=== PATIENT | male | born 1965 | race Caucasian/White ===

== ENCOUNTER 2023-06-11 18:58 | Inpatient (IN) | payer MEDICAID ==
[~2023-06-11] VITALS: Ht 172.7 cm; Wt 117.0 kg
[2023-06-11] MEDS ORDERED: PIPERACILLIN SODIUM/TAZOBACTAM 3.375 G in IV DEXTROSE 5% 50 ML IV ONE (19:30)
[2023-06-11] MEDS ORDERED: VANCOMYCIN IV 1,000 MG in IV DEXTROSE 5% 250 ML IV ONE (19:30)
[2023-06-11] MEDS ORDERED: HYDROMORPHONE 1 MG/1 ML DISP.SYRIN IV ONE ×2 (19:30→21:15)
[2023-06-11] MEDS ORDERED: ONDANSETRON 4 MG/2 ML VIAL IV ONE (19:30)
[2023-06-11 20:03] LABS: BASOPHILS % (AUTO) 0.2 % (0.0-2.0); HEMOGLOBIN 13.5 g/dL (12.5-16.3); LYMPHOCYTES # (AUTO) 0.5 K/uL (0.8-4.8); LYMPHOCYTES % (AUTO) 4.7 % (20.5-51.5); MEAN CORPUSCULAR HEMOGLOBIN 27.4 uug (23.8-33.4); MEAN CORPUSCULAR HGB CONC 32 g/dL (32.5-36.3); MEAN CORPUSCULAR VOLUME 85.1 fL (73.0-96.2); MONOCYTES # (AUTO) 0.5 K/uL (0.1-1.30); MONOCYTES % (AUTO) 4.6 % (0.0-11.0); NEUTROPHILS # (AUTO) 9.2 K/uL (1.8-8.9); NEUTROPHILS % (AUTO) 90.5 % (38.5-71.5); PLATELET COUNT (AUTO) 315 K/uL (152-348); RED BLOOD CELL COUNT(AUTO) 4.93 MIL/uL (4.06-5.63); RED CELL DISTRIBUTION WIDTH 15.5 % (12.1-16.2); WHITE BLOOD COUNT (AUTO) 10.1 K/uL (3.6-10.2)
[2023-06-11] MEDS ORDERED: VANCOMYCIN IV 200 ML ONE (20:09)
[2023-06-11] MEDS ORDERED: ONDANSETRON 4 MG/2 ML VIAL ONE (20:09)
[2023-06-11] MEDS ORDERED: PIPERACILLIN/TAZOBACTAM/D5W 50 ML IV ONE (20:09)
[2023-06-11] MEDS ORDERED: HYDROMORPHONE 1 MG/1 ML DISP.SYRIN ONE ×2 (20:10→22:06)
[2023-06-11 20:12] LABS: DIFFERENTIAL COMMENT 1
[2023-06-11 20:13] LABS: CALCIUM 9.6 mg/dL (8.5-10.1); CARBON DIOXIDE 24 mmol/L (21-32); CHLORIDE 101 mmol/L (98-107); GLUCOSE 190 mg/dL (74-106); SODIUM SERUM 138 mmol/L (136-145); UREA NITROGEN, BLOOD 19 mg/dL (7-18)
[2023-06-11 20:26] LABS: ALANINE AMINOTRANSFERASE 32 U/L (16-63); ALBUMIN 3.4 g/dL (3.4-5.0); ALKALINE PHOSPHATASE 78 U/L (50-136); ASPARTATE AMINOTRANSFERASE 27 U/L (15-37); BILIRUBIN,DIRECT 0.2 mg/dL (0.0-0.2); BILIRUBIN,TOTAL 0.4 mg/dL (0.2-1.0); NT-PRO BNP 460 pg/mL (0-125); TOTAL PROTEIN, SERUM 8.4 g/dL (6.4-8.2)
[2023-06-11] MEDS ORDERED: IV NORMAL SALINE 1000 ML BAG IV ONE (22:30)
[2023-06-11] MEDS ORDERED: ONDANSETRON 4 MG/2 ML VIAL IV PRN (22:45)
[2023-06-11] MEDS ORDERED: HYDROMORPHONE 1 MG/1 ML DISP.SYRIN IV PRN (22:45)
[2023-06-11] MEDS ORDERED: IV 1/2NS 1000 ML 1,000 ML IV PRN (22:45)
[2023-06-11] MEDS ORDERED: ACETAMINOPHEN 325 MG TABLET PO PRN (22:45)
[2023-06-11] MEDS ORDERED: METOPROLOL TARTRATE 50 MG TABLET ONE (23:01)
[2023-06-11] MEDS: METOPROLOL TARTRATE 50 MG TABLET PO SCH (23:06)
[2023-06-11 23:50] VITALS: BP 157/88; TEMP 98.2; O2SAT 93
[2023-06-12] VITALS (7 sets, daily range): BP systolic 156–168; BP diastolic 75–91; TEMP 98.1–98.7; O2SAT 90–96
[2023-06-12] MEDS ORDERED: LABETALOL HCL 100 MG/20 ML VIAL IV PRN
[2023-06-12] MEDS ORDERED: VANCOMYCIN IV 1,000 MG in IV DEXTROSE 5% 250 ML IV ONE (00:45)
[2023-06-12] MEDS ORDERED: PIPERACILLIN SODIUM/TAZOBACTAM 3.375 G in IV DEXTROSE 5% 50 ML IV ONE (02:00)
[2023-06-12] MEDS ORDERED: PIPERACILLIN/TAZOBACTAM/D5W 50 ML IV ONE (03:21)
[2023-06-12] MEDS ORDERED: VANCOMYCIN IV 200 ML ONE (03:21)
[2023-06-12 07:16] LABS: BASOPHILS # (AUTO) 0.1 K/UL (0.0-0.2); BASOPHILS % (AUTO) 0.3 % (0.0-2.0); HEMATOCRIT 37.9 % (36.7-47.1); HEMOGLOBIN 12.1 g/dL (12.5-16.3); LYMPHOCYTES # (AUTO) 0.2 K/uL (0.8-4.8); LYMPHOCYTES % (AUTO) 1.3 % (20.5-51.5); MEAN CORPUSCULAR HEMOGLOBIN 27.2 uug (23.8-33.4); MEAN CORPUSCULAR HGB CONC 32 g/dL (32.5-36.3); MEAN CORPUSCULAR VOLUME 85.5 fL (73.0-96.2); MONOCYTES # (AUTO) 0.9 K/uL (0.1-1.30); MONOCYTES % (AUTO) 6.2 % (0.0-11.0); NEUTROPHILS # (AUTO) 13.7 K/uL (1.8-8.9); NEUTROPHILS % (AUTO) 92.2 % (38.5-71.5); PLATELET COUNT (AUTO) 265 K/uL (152-348); RED BLOOD CELL COUNT(AUTO) 4.43 MIL/uL (4.06-5.63); RED CELL DISTRIBUTION WIDTH 15.1 % (12.1-16.2); WHITE BLOOD COUNT (AUTO) 14.9 K/uL (3.6-10.2)
[2023-06-12 07:26] LABS: DIFFERENTIAL COMMENT 1
[2023-06-12] MEDS ORDERED: PIPERACILLIN SODIUM/TAZOBACTAM 3.375 G in IV DEXTROSE 5% 50 ML IV SCH (08:00)
[2023-06-12 08:02] LABS: CALCIUM 8.3 mg/dL (8.5-10.1); MAGNESIUM 1.8 mg/dL (1.8-2.4); PHOSPHOROUS 4.4 mg/dL (2.5-4.9); POTASSIUM 4.2 mmol/L (3.5-5.1)
[2023-06-12] MEDS: ENOXAPARIN SODIUM 40 MG/0.4 ML DISP.SYRIN SQ SCH (08:46)
[2023-06-12] MEDS: METOPROLOL TARTRATE 50 MG TABLET PO SCH ×2 (08:46→20:47)
[2023-06-12] MEDS ORDERED: ERTU15TA PO (10:35)
[2023-06-12] MEDS ORDERED: BUPR8TAB4 SL (10:35)
[2023-06-12] MEDS ORDERED: DULO60CA45 PO (10:35)
[2023-06-12] MEDS ORDERED: METF-441 PO (10:35)
[2023-06-12] MEDS ORDERED: GABA-536 PO (10:35)
[2023-06-12] MEDS ORDERED: ASPI81TA31 PO (10:35)
[2023-06-12] MEDS ORDERED: CLOP75TA15 PO (10:35)
[2023-06-12] MEDS ORDERED: UBID200C35 PO (10:35)
[2023-06-12] MEDS ORDERED: MULT-1201 PO (10:35)
[2023-06-12] MEDS ORDERED: SAW160CA3 PO (10:35)
[2023-06-12] MEDS ORDERED: PROP20TA7 PO (10:35)
[2023-06-12] MEDS ORDERED: AMLO-212 PO (10:35)
[2023-06-12] MEDS ORDERED: IBUP-1955 PO (10:35)
[2023-06-12] MEDS: PIPERACILLIN SODIUM/TAZOBACTAM 3.375 G in IV DEXTROSE 5% 100 ML IV SCH ×4 (12:18→21:00)
[2023-06-12] MEDS ORDERED: DEXTROSE 50% 50 ML DISP.SYRIN IV PRN (13:15)
[2023-06-12] MEDS ORDERED: PROPRANOLOL HCL 20 MG TABLET PO PRN (13:15)
[2023-06-12] MEDS: AMLODIPINE 5 MG TABLET PO SCH (13:51)
[2023-06-12] MEDS: GABAPENTIN 300 MG CAPSULE PO SCH ×2 (13:52→16:17)
[2023-06-12] MEDS: CLOPIDOGREL 75 MG TABLET PO SCH (13:52)
[2023-06-12] MEDS: ASPIRIN 81 MG TAB.CHEW PO SCH (13:58)
[2023-06-12] MEDS: VANCOMYCIN IV 1,500 MG in IV DEXTROSE 5% 500 ML IV SCH (16:14)
[2023-06-12] MEDS: CLOTRIMAZOLE 1% CREAM 30 GM TUBE TOP SCH (16:15)
[2023-06-12] MEDS: REMEDY ESSENTIAL ZINC PASTE 113 GM TP PRN (16:16)
[2023-06-12] MEDS: PREGABALIN 25 MG CAPSULE PO SCH (16:17)
[2023-06-12] MEDS: BLOOD SUGAR DIAGNOSTIC 1 EACH STRIP VI SCH ×2 (16:23→21:46)
[2023-06-12] MEDS: INSULIN REGULAR, HUMAN 300 UNIT/3 ML VIAL SQ PRN (16:36)
[2023-06-12] MEDS: IBUPROFEN 600 MG TABLET PO PRN (16:36)
[2023-06-12] MEDS ORDERED: HYDROMORPHONE 1 MG/1 ML DISP.SYRIN IV PRN (17:30)
[2023-06-12] MEDS: DOCUSATE SODIUM 250 MG CAPSULE PO SCH (20:47)
[2023-06-13 04:00] VITALS: TEMP 97.7; O2SAT 95
[2023-06-13] MEDS: CEFTRIAXONE 1 G in IV DEXTROSE 5% 50 ML IV SCH ×2 (07:10→20:33)
[2023-06-13] MEDS: VANCOMYCIN IV 1,500 MG in IV DEXTROSE 5% 500 ML IV SCH ×2 (07:17→15:51)
[2023-06-13 07:19] LABS: BASOPHILS % (AUTO) 0.2 % (0.0-2.0); EOSINOPHILS % (AUTO) 0.2 % (0.0-7.0); HEMOGLOBIN 13.9 g/dL (12.5-16.3); LYMPHOCYTES # (AUTO) 0.7 K/uL (0.8-4.8); LYMPHOCYTES % (AUTO) 5.2 % (20.5-51.5); MEAN CORPUSCULAR HEMOGLOBIN 27.7 uug (23.8-33.4); MEAN CORPUSCULAR HGB CONC 32 g/dL (32.5-36.3); MEAN CORPUSCULAR VOLUME 85.5 fL (73.0-96.2); MONOCYTES # (AUTO) 1.3 K/uL (0.1-1.30); MONOCYTES % (AUTO) 9.7 % (0.0-11.0); NEUTROPHILS # (AUTO) 11.4 K/uL (1.8-8.9); NEUTROPHILS % (AUTO) 84.7 % (38.5-71.5); PLATELET COUNT (AUTO) 278 K/uL (152-348); RED BLOOD CELL COUNT(AUTO) 5.02 MIL/uL (4.06-5.63); RED CELL DISTRIBUTION WIDTH 15.4 % (12.1-16.2); WHITE BLOOD COUNT (AUTO) 13.5 K/uL (3.6-10.2)
[2023-06-13 07:25] LABS: DIFFERENTIAL COMMENT 1
[2023-06-13 07:28] LABS: CREATININE 1.3 mg/dL (0.6-1.3); MAGNESIUM 2.1 mg/dL (1.8-2.4); PHOSPHOROUS 3.9 mg/dL (2.5-4.9); POTASSIUM 3.6 mmol/L (3.5-5.1)
[2023-06-13] MEDS: BLOOD SUGAR DIAGNOSTIC 1 EACH STRIP VI SCH ×4 (09:41→20:33)
[2023-06-13] MEDS: ASPIRIN 81 MG TAB.CHEW PO SCH (09:42)
[2023-06-13] MEDS: CLOPIDOGREL 75 MG TABLET PO SCH (09:42)
[2023-06-13] MEDS: MULTIVITAMINS,THERAPEUTIC TABLET PO SCH (09:42)
[2023-06-13] MEDS: GABAPENTIN 300 MG CAPSULE PO SCH ×3 (09:42→17:05)
[2023-06-13] MEDS: BUPRENORPHINE 8MG SL TABLET SL SCH (09:43)
[2023-06-13] MEDS: AMLODIPINE 5 MG TABLET PO SCH (09:43)
[2023-06-13] MEDS: METOPROLOL TARTRATE 50 MG TABLET PO SCH ×2 (09:43→20:24)
[2023-06-13] MEDS: PREGABALIN 25 MG CAPSULE PO SCH ×2 (09:43→17:05)
[2023-06-13] MEDS: CLOTRIMAZOLE 1% CREAM 30 GM TUBE TOP SCH ×2 (09:44→17:11)
[2023-06-13] MEDS: ENOXAPARIN SODIUM 40 MG/0.4 ML DISP.SYRIN SQ SCH (09:44)
[2023-06-13] MEDS: BACITRACIN ZINC OINT 15 GM TUBE TOP SCH (11:30)
[2023-06-13] MEDS: INSULIN REGULAR, HUMAN 300 UNIT/3 ML VIAL SQ PRN ×2 (11:49→17:07)
[2023-06-13 12:00] VITALS: TEMP 97.6
[2023-06-13 12:30] VITALS: O2SAT 93
[2023-06-13] MEDS: IBUPROFEN 600 MG TABLET PO PRN (12:44)
[2023-06-13 16:00] VITALS: TEMP 97.6
[2023-06-13] MEDS: HYDROMORPHONE 1 MG/1 ML DISP.SYRIN IV PRN ×2 (16:02→22:08)
[2023-06-13] MEDS ORDERED: MAG HYDROX/AL HYDROX/SIMETH 30 ML LIQUID UDC PO PRN (18:45)
[2023-06-13] MEDS: DOCUSATE SODIUM 250 MG CAPSULE PO SCH (20:24)
[2023-06-13 20:33] VITALS: BP 149/82; TEMP 97.5; O2SAT 89
[2023-06-13] MEDS: MAGNESIUM HYDROXIDE 30 ML LIQUID UDC PO PRN ×2 (22:30→22:41)
[2023-06-14 04:15] VITALS: BP 189/88; TEMP 97.6; O2SAT 92
[2023-06-14] MEDS: HYDROMORPHONE 1 MG/1 ML DISP.SYRIN IV PRN ×4 (04:18→20:30)
[2023-06-14] MEDS: VANCOMYCIN IV 1,500 MG in IV DEXTROSE 5% 500 ML IV SCH ×2 (04:19→16:29)
[2023-06-14] MEDS: BLOOD SUGAR DIAGNOSTIC 1 EACH STRIP VI SCH ×4 (06:42→21:00)
[2023-06-14 06:53] LABS: BASOPHILS % (AUTO) 0.4 % (0.0-2.0); EOSINOPHILS # (AUTO) 0.1 K/uL (0.0-0.7); EOSINOPHILS % (AUTO) 0.5 % (0.0-7.0); HEMATOCRIT 39.3 % (36.7-47.1); HEMOGLOBIN 12.9 g/dL (12.5-16.3); LYMPHOCYTES # (AUTO) 0.8 K/uL (0.8-4.8); LYMPHOCYTES % (AUTO) 7.5 % (20.5-51.5); MEAN CORPUSCULAR HEMOGLOBIN 27.7 uug (23.8-33.4); MEAN CORPUSCULAR HGB CONC 33 g/dL (32.5-36.3); MEAN CORPUSCULAR VOLUME 84.4 fL (73.0-96.2); MONOCYTES # (AUTO) 1.3 K/uL (0.1-1.30); MONOCYTES % (AUTO) 12.3 % (0.0-11.0); NEUTROPHILS # (AUTO) 8.3 K/uL (1.8-8.9); NEUTROPHILS % (AUTO) 79.3 % (38.5-71.5); PLATELET COUNT (AUTO) 281 K/uL (152-348); RED BLOOD CELL COUNT(AUTO) 4.65 MIL/uL (4.06-5.63); RED CELL DISTRIBUTION WIDTH 15.2 % (12.1-16.2); WHITE BLOOD COUNT (AUTO) 10.4 K/uL (3.6-10.2)
[2023-06-14 07:22] LABS: DIFFERENTIAL COMMENT 1
[2023-06-14 07:33] LABS: CALCIUM 8.5 mg/dL (8.5-10.1); MAGNESIUM 2.5 mg/dL (1.8-2.4); PHOSPHOROUS 2.3 mg/dL (2.5-4.9); POTASSIUM 3.7 mmol/L (3.5-5.1)
[2023-06-14] MEDS: PREGABALIN 25 MG CAPSULE PO SCH ×2 (08:22→16:29)
[2023-06-14] MEDS: GABAPENTIN 300 MG CAPSULE PO SCH ×3 (08:22→16:30)
[2023-06-14] MEDS: MULTIVITAMINS,THERAPEUTIC TABLET PO SCH (08:23)
[2023-06-14] MEDS: CLOPIDOGREL 75 MG TABLET PO SCH (08:23)
[2023-06-14] MEDS: ASPIRIN 81 MG TAB.CHEW PO SCH (08:23)
[2023-06-14] MEDS: ENOXAPARIN SODIUM 40 MG/0.4 ML DISP.SYRIN SQ SCH (08:24)
[2023-06-14] MEDS: BACITRACIN ZINC OINT 15 GM TUBE TOP SCH (08:24)
[2023-06-14] MEDS: CLOTRIMAZOLE 1% CREAM 30 GM TUBE TOP SCH ×2 (08:24→16:30)
[2023-06-14] MEDS: BUPRENORPHINE 8MG SL TABLET SL SCH (08:27)
[2023-06-14] MEDS: AMLODIPINE 5 MG TABLET PO SCH (08:32)
[2023-06-14] MEDS: METOPROLOL TARTRATE 50 MG TABLET PO SCH ×2 (08:33→23:20)
[2023-06-14] MEDS: INSULIN REGULAR, HUMAN 300 UNIT/3 ML VIAL SQ PRN ×3 (11:51→23:47)
[2023-06-14] MEDS: CYCLOBENZAPRINE HCL 10 MG TABLET PO PRN (13:07)
[2023-06-14] MEDS: MAGNESIUM HYDROXIDE 30 ML LIQUID UDC PO PRN (13:10)
[2023-06-14 16:00] VITALS: BP 199/91; TEMP 98.9; O2SAT 93
[2023-06-14] MEDS ORDERED: NEUTRA PHOS PACKET PO ONE (16:00)
[2023-06-14 17:04] VITALS: O2SAT 93
[2023-06-14] MEDS: hydrALAZINE HCL 20 MG/1 ML VIAL IV PRN (17:26)
[2023-06-14] MEDS ORDERED: IV NORMAL SALINE 250 ML IV PRN (19:00)
[2023-06-14] MEDS ORDERED: ADENOSINE 6 MG/2 ML SYR IV ONE (19:15)
[2023-06-14 19:53] LABS: ABG BASE EXCESS -8.3 mmol/L; ABG HCO3 13.4 mmol/L; ABG PCO2 20.3 mmHg (35.0-45.0); ABG PH 7.438 (7.350-7.450); ABG PO2 90.2 mmHg (75.0-100.0); ABG SITE RIGHT RADIAL; ABG TOTAL HEMOGLOBIN 14.2 G/dL (13.5-18.0); COHb 0.6 % (0.5-1.5); MetHb 0.1 % (0.0-1.5); O2Hb 96.4 % (94.0-97.0)
[2023-06-14 20:00] VITALS: BP 136/70; O2SAT 92
[2023-06-14] MEDS ORDERED: HYDROMORPHONE 1 MG/1 ML DISP.SYRIN ONE (20:27)
[2023-06-14] MEDS ORDERED: DOCUSATE SODIUM 100 MG CAPSULE PO SCH (21:00)
[2023-06-14 21:24] LABS: DIFFERENTIAL COMMENT 0; EOSINOPHILS % (AUTO) 0.1 % (0.0-7.0); HEMATOCRIT 43.3 % (36.7-47.1); HEMOGLOBIN 13.6 g/dL (12.5-16.3); LYMPHOCYTES # (AUTO) 0.4 K/uL (0.8-4.8); LYMPHOCYTES % (AUTO) 3.2 % (20.5-51.5); MEAN CORPUSCULAR HEMOGLOBIN 27.2 uug (23.8-33.4); MEAN CORPUSCULAR HGB CONC 32 g/dL (32.5-36.3); MEAN CORPUSCULAR VOLUME 86.1 fL (73.0-96.2); MONOCYTES # (AUTO) 1.3 K/uL (0.1-1.30); MONOCYTES % (AUTO) 11.1 % (0.0-11.0); NEUTROPHILS # (AUTO) 10.3 K/uL (1.8-8.9); NEUTROPHILS % (AUTO) 85.6 % (38.5-71.5); PLATELET COUNT (AUTO) 287 K/uL (152-348); RED BLOOD CELL COUNT(AUTO) 5.03 MIL/uL (4.06-5.63); RED CELL DISTRIBUTION WIDTH 15.9 % (12.1-16.2); WHITE BLOOD COUNT (AUTO) 12.1 K/uL (3.6-10.2)
[2023-06-14 21:37] LABS: BILIRUBIN,TOTAL 0.6 mg/dL (0.2-1.0); CALCIUM 8.5 mg/dL (8.5-10.1); CREATININE 1.2 mg/dL (0.6-1.3); POTASSIUM 4.3 mmol/L (3.5-5.1); TOTAL PROTEIN, SERUM 6.8 g/dL (6.4-8.2)
[2023-06-14] MEDS ORDERED: PIPERACILLIN SODIUM/TAZOBACTAM 3.375 G in IV DEXTROSE 5% 50 ML IV SCH (22:00)
[2023-06-14] MEDS: PIPERACILLIN SODIUM/TAZOBACTAM 3.375 G in IV DEXTROSE 5% 50 ML IV SCH (22:42)
[2023-06-14] MEDS ORDERED: DOCUSATE SODIUM 100 MG CAPSULE PO ONE (23:13)
[2023-06-14] MEDS ORDERED: METOPROLOL TARTRATE 50 MG TABLET ONE (23:14)
[2023-06-14] MEDS: DOCUSATE SODIUM 250 MG CAPSULE PO SCH (23:22)
[2023-06-14] MEDS: SENNOSIDES 1 TABLET PO SCH (23:40)
[2023-06-15] VITALS (10 sets, daily range): BP systolic 126–197; BP diastolic 71–88; TEMP 97.5–99.9; O2SAT 93–96
[2023-06-15] MEDS: IV NS 1000 ML 1,000 ML IV PRN ×2 (00:58→03:38)
[2023-06-15 03:49] LABS: *BLOOD, URINE 2+ (NEGATIVE); *COLOR,URINE YELLOW (YELLOW); *KETONES,URINE 3+ (NEGATIVE); *PROTEIN,URINE 2+ (NEGATIVE); *UROBILINOGEN,URINE 0.2 E.U./dl (NORMAL); LEUKOCYTE ESTERASE ,URINE NEGATIVE (NEGATIVE); NITRITE, URINE NEGATIVE (NEGATIVE)
[2023-06-15 03:50] LABS: *BILIRUBIN,URIN 2+ (NEGATIVE); *CLARITY,URINE HAZY (CLEAR); UGLUCOSE 2+ (NEGATIVE)
[2023-06-15 03:52] LABS: CALCIUM 8.4 mg/dL (8.5-10.1); CREATININE 1.1 mg/dL (0.6-1.3); POTASSIUM 4.1 mmol/L (3.5-5.1)
[2023-06-15] MEDS: VANCOMYCIN IV 1,500 MG in IV DEXTROSE 5% 500 ML IV SCH ×2 (03:58→10:59)
[2023-06-15 04:07] LABS: BACTERIA,URINE FEW /HPF (NONE SEEN); RBC,URINE 20-50 /HPF (0-3); SQUAMOUS EPITHELIAL CELL,UR NONE SEEN /HPF (NONE SEEN); WBC,URINE 0-3 /HPF (0-3)
[2023-06-15] MEDS ORDERED: HYDROMORPHONE 1 MG/1 ML DISP.SYRIN ONE (04:45)
[2023-06-15] MEDS: HYDROMORPHONE 1 MG/1 ML DISP.SYRIN IV PRN ×3 (04:47→13:37)
[2023-06-15] MEDS: PIPERACILLIN SODIUM/TAZOBACTAM 3.375 G in IV DEXTROSE 5% 50 ML IV SCH (05:24)
[2023-06-15] MEDS: BLOOD SUGAR DIAGNOSTIC 1 EACH STRIP VI SCH ×4 (07:16→20:26)
[2023-06-15] MEDS: INSULIN REGULAR, HUMAN 300 UNIT/3 ML VIAL SQ PRN ×4 (07:19→20:33)
[2023-06-15] MEDS ORDERED: FUROSEMIDE 20 MG/2 ML VIAL IV ONE (08:00)
[2023-06-15] MEDS: ENOXAPARIN SODIUM 40 MG/0.4 ML DISP.SYRIN SQ SCH (08:11)
[2023-06-15] MEDS: METOPROLOL TARTRATE 50 MG TABLET PO SCH ×2 (08:12→20:19)
[2023-06-15] MEDS: CLOPIDOGREL 75 MG TABLET PO SCH (08:13)
[2023-06-15] MEDS: ASPIRIN 81 MG TAB.CHEW PO SCH (08:13)
[2023-06-15] MEDS: MULTIVITAMINS,THERAPEUTIC TABLET PO SCH (08:13)
[2023-06-15] MEDS: AMLODIPINE 5 MG TABLET PO SCH (08:13)
[2023-06-15] MEDS: GABAPENTIN 300 MG CAPSULE PO SCH ×3 (08:13→17:03)
[2023-06-15] MEDS: BACITRACIN ZINC OINT 15 GM TUBE TOP SCH (08:24)
[2023-06-15] MEDS: CLOTRIMAZOLE 1% CREAM 30 GM TUBE TOP SCH ×2 (08:24→17:04)
[2023-06-15] MEDS: REMEDY ESSENTIAL ZINC PASTE 113 GM TP PRN (08:24)
[2023-06-15] MEDS: PREGABALIN 25 MG CAPSULE PO SCH ×2 (08:24→17:03)
[2023-06-15] MEDS: BUPRENORPHINE 8MG SL TABLET SL SCH (08:32)
[2023-06-15] MEDS: METOPROLOL TARTRATE 5 MG/5 ML VIAL IVP PRN ×2 (09:26→18:50)
[2023-06-15] MEDS: DILTIAZEM HCL CD 240 MG CAP.SR.24H PO SCH (10:45)
[2023-06-15] MEDS: PIPERACILLIN SODIUM/TAZOBACTAM 3.375 G in IV DEXTROSE 5% 100 ML IV SCH ×2 (13:38→21:42)
[2023-06-15] MEDS: CYCLOBENZAPRINE HCL 10 MG TABLET PO PRN (14:16)
[2023-06-15] MEDS ORDERED: ACETAMINOPHEN 325 MG TABLET PO SCH (14:30)
[2023-06-15] MEDS: ACETAMINOPHEN ES 500 MG TABLET PO SCH ×2 (15:06→22:15)
[2023-06-15] MEDS: HYDROMORPHONE 2 MG/1 ML DISP.SYRIN IV PRN ×2 (17:01→20:19)
[2023-06-15] MEDS: SENNOSIDES 1 TABLET PO SCH (20:18)
[2023-06-15] MEDS: DOCUSATE SODIUM 250 MG CAPSULE PO SCH (20:18)
[2023-06-15] MEDS: hydrALAZINE HCL 20 MG/1 ML VIAL IV PRN (22:15)
[2023-06-16] VITALS (10 sets, daily range): BP systolic 144–196; BP diastolic 80–91; TEMP 97.6–98.3; O2SAT 93–98
[2023-06-16] MEDS: HYDROMORPHONE 2 MG/1 ML DISP.SYRIN IV PRN ×7 (00:50→22:21)
[2023-06-16] MEDS: VANCOMYCIN IV 1,500 MG in IV DEXTROSE 5% 500 ML IV SCH ×2 (04:24→18:37)
[2023-06-16] MEDS: hydrALAZINE HCL 20 MG/1 ML VIAL IV PRN (04:41)
[2023-06-16] MEDS: ACETAMINOPHEN ES 500 MG TABLET PO SCH ×3 (06:29→21:38)
[2023-06-16] MEDS: PIPERACILLIN SODIUM/TAZOBACTAM 3.375 G in IV DEXTROSE 5% 100 ML IV SCH ×3 (06:29→21:12)
[2023-06-16] MEDS: BLOOD SUGAR DIAGNOSTIC 1 EACH STRIP VI SCH ×4 (06:31→21:35)
[2023-06-16 06:55] LABS: CALCIUM 8.7 mg/dL (8.5-10.1); CREATININE 0.7 mg/dL (0.6-1.3); MAGNESIUM 2.3 mg/dL (1.8-2.4); POTASSIUM 3.6 mmol/L (3.5-5.1)
[2023-06-16 07:09] LABS: BASOPHILS # (AUTO) 0.1 K/UL (0.0-0.2); BASOPHILS % (AUTO) 0.5 % (0.0-2.0); DIFFERENTIAL COMMENT 0; EOSINOPHILS # (AUTO) 0.1 K/uL (0.0-0.7); EOSINOPHILS % (AUTO) 0.8 % (0.0-7.0); HEMATOCRIT 37.7 % (36.7-47.1); HEMOGLOBIN 12.2 g/dL (12.5-16.3); LYMPHOCYTES # (AUTO) 1.2 K/uL (0.8-4.8); LYMPHOCYTES % (AUTO) 11.7 % (20.5-51.5); MEAN CORPUSCULAR HEMOGLOBIN 27.4 uug (23.8-33.4); MEAN CORPUSCULAR HGB CONC 32 g/dL (32.5-36.3); MONOCYTES # (AUTO) 1.3 K/uL (0.1-1.30); MONOCYTES % (AUTO) 12.9 % (0.0-11.0); NEUTROPHILS # (AUTO) 7.8 K/uL (1.8-8.9); NEUTROPHILS % (AUTO) 74.1 % (38.5-71.5); PLATELET COUNT (AUTO) 309 K/uL (152-348); RED BLOOD CELL COUNT(AUTO) 4.43 MIL/uL (4.06-5.63); RED CELL DISTRIBUTION WIDTH 15.3 % (12.1-16.2); WHITE BLOOD COUNT (AUTO) 10.5 K/uL (3.6-10.2)
[2023-06-16] MEDS: ENOXAPARIN SODIUM 40 MG/0.4 ML DISP.SYRIN SQ SCH (08:29)
[2023-06-16] MEDS: PREGABALIN 25 MG CAPSULE PO SCH ×2 (08:30→16:43)
[2023-06-16] MEDS: ASPIRIN 81 MG TAB.CHEW PO SCH (08:30)
[2023-06-16] MEDS: GABAPENTIN 300 MG CAPSULE PO SCH ×3 (08:30→16:43)
[2023-06-16] MEDS: DILTIAZEM HCL CD 240 MG CAP.SR.24H PO SCH (08:30)
[2023-06-16] MEDS: CLOPIDOGREL 75 MG TABLET PO SCH (08:31)
[2023-06-16] MEDS: MULTIVITAMINS,THERAPEUTIC TABLET PO SCH (08:31)
[2023-06-16] MEDS: CARVEDILOL 25 MG TABLET PO SCH ×2 (08:31→16:51)
[2023-06-16] MEDS: INSULIN REGULAR, HUMAN 300 UNIT/3 ML VIAL SQ PRN ×4 (08:33→21:34)
[2023-06-16] MEDS: CLOTRIMAZOLE 1% CREAM 30 GM TUBE TOP SCH ×2 (08:34→16:45)
[2023-06-16] MEDS: BACITRACIN ZINC OINT 15 GM TUBE TOP SCH (08:34)
[2023-06-16] MEDS ORDERED: VALSARTAN 160 MG TABLET PO SCH (09:00)
[2023-06-16] MEDS: CYCLOBENZAPRINE HCL 10 MG TABLET PO PRN ×2 (10:31→18:07)
[2023-06-16] MEDS: MIRALAX 17 GM POWD.PACK PO SCH (10:33)
[2023-06-16] MEDS: IBUPROFEN 600 MG TABLET PO PRN (12:08)
[2023-06-16] MEDS: MORPHINE SULFATE SR 30 MG TABLET.SA PO SCH ×2 (20:03→20:40)
[2023-06-16] MEDS: AMLODIPINE 5 MG TABLET PO SCH (20:40)
[2023-06-16] MEDS: DOXYCYCLINE HYCLATE 100 MG TABLET PO SCH (20:40)
[2023-06-16] MEDS: DOCUSATE SODIUM 250 MG CAPSULE PO SCH (20:40)
[2023-06-16] MEDS: SENNOSIDES 1 TABLET PO SCH (20:40)
[2023-06-16] MEDS ORDERED: SENNOSIDES/DOCUSATE SODIUM TABLET PO SCH (21:00)
[2023-06-17] VITALS (7 sets, daily range): BP systolic 127–163; BP diastolic 71–81; TEMP 97.7–98.8; O2SAT 19–97
[2023-06-17] MEDS: HYDROMORPHONE 2 MG/1 ML DISP.SYRIN IV PRN ×4 (02:15→18:40)
[2023-06-17] MEDS: PIPERACILLIN SODIUM/TAZOBACTAM 3.375 G in IV DEXTROSE 5% 100 ML IV SCH ×3 (05:16→21:33)
[2023-06-17] MEDS: ACETAMINOPHEN ES 500 MG TABLET PO SCH ×3 (05:16→23:07)
[2023-06-17] MEDS: BLOOD SUGAR DIAGNOSTIC 1 EACH STRIP VI SCH ×4 (06:59→20:31)
[2023-06-17] MEDS: DOXYCYCLINE HYCLATE 100 MG TABLET PO SCH ×2 (08:53→20:30)
[2023-06-17] MEDS: PREGABALIN 25 MG CAPSULE PO SCH ×2 (08:54→17:06)
[2023-06-17] MEDS: DILTIAZEM HCL CD 240 MG CAP.SR.24H PO SCH (08:55)
[2023-06-17] MEDS: MORPHINE SULFATE SR 30 MG TABLET.SA PO SCH ×3 (08:55→21:54)
[2023-06-17] MEDS: BACLOFEN 10 MG TABLET PO SCH ×3 (08:56→17:06)
[2023-06-17] MEDS: MULTIVITAMINS,THERAPEUTIC TABLET PO SCH (08:56)
[2023-06-17] MEDS: CARVEDILOL 25 MG TABLET PO SCH ×2 (08:56→17:10)
[2023-06-17] MEDS: ASPIRIN 81 MG TAB.CHEW PO SCH (08:56)
[2023-06-17] MEDS: GABAPENTIN 300 MG CAPSULE PO SCH ×3 (08:56→17:06)
[2023-06-17] MEDS: CLOPIDOGREL 75 MG TABLET PO SCH (08:56)
[2023-06-17] MEDS: MIRALAX 17 GM POWD.PACK PO SCH (08:57)
[2023-06-17] MEDS: ENOXAPARIN SODIUM 40 MG/0.4 ML DISP.SYRIN SQ SCH (09:05)
[2023-06-17] MEDS: BACITRACIN ZINC OINT 15 GM TUBE TOP SCH (09:05)
[2023-06-17] MEDS: CLOTRIMAZOLE 1% CREAM 30 GM TUBE TOP SCH ×2 (09:06→17:08)
[2023-06-17] MEDS: VALSARTAN 160 MG TABLET PO SCH (09:32)
[2023-06-17] MEDS: INSULIN REGULAR, HUMAN 300 UNIT/3 ML VIAL SQ PRN ×3 (13:01→20:33)
[2023-06-17] MEDS: SENNOSIDES 1 TABLET PO SCH (20:30)
[2023-06-17] MEDS: AMLODIPINE 5 MG TABLET PO SCH (20:30)
[2023-06-17] MEDS: DOCUSATE SODIUM 250 MG CAPSULE PO SCH (20:30)
[2023-06-17] MEDS ORDERED: SENNOSIDES/DOCUSATE SODIUM TABLET PO SCH (21:00)
[2023-06-18] MEDS: HYDROMORPHONE 2 MG/1 ML DISP.SYRIN IV PRN ×4 (00:43→20:30)
[2023-06-18 04:00] VITALS: BP 140/66; TEMP 98.1; O2SAT 94
[2023-06-18] MEDS ORDERED: MORPHINE SULFATE IR 30 MG TABLET ONE ×2 (06:02→06:16)
[2023-06-18] MEDS: ACETAMINOPHEN ES 500 MG TABLET PO SCH ×3 (06:04→22:05)
[2023-06-18] MEDS: PIPERACILLIN SODIUM/TAZOBACTAM 3.375 G in IV DEXTROSE 5% 100 ML IV SCH ×3 (06:04→22:05)
[2023-06-18] MEDS: BLOOD SUGAR DIAGNOSTIC 1 EACH STRIP VI SCH ×4 (06:04→20:37)
[2023-06-18] MEDS: MORPHINE SULFATE SR 30 MG TABLET.SA PO SCH ×3 (06:35→22:05)
[2023-06-18] MEDS: CARVEDILOL 25 MG TABLET PO SCH ×2 (08:02→17:29)
[2023-06-18] MEDS: BACLOFEN 10 MG TABLET PO SCH ×3 (08:31→17:19)
[2023-06-18] MEDS: PREGABALIN 25 MG CAPSULE PO SCH ×2 (08:31→17:19)
[2023-06-18] MEDS: DILTIAZEM HCL CD 240 MG CAP.SR.24H PO SCH (08:31)
[2023-06-18] MEDS: GABAPENTIN 300 MG CAPSULE PO SCH ×3 (08:31→17:18)
[2023-06-18] MEDS: VALSARTAN 160 MG TABLET PO SCH (08:32)
[2023-06-18] MEDS: CLOPIDOGREL 75 MG TABLET PO SCH (08:32)
[2023-06-18] MEDS: ASPIRIN 81 MG TAB.CHEW PO SCH (08:32)
[2023-06-18] MEDS: MULTIVITAMINS,THERAPEUTIC TABLET PO SCH (08:32)
[2023-06-18] MEDS: MIRALAX 17 GM POWD.PACK PO SCH (08:33)
[2023-06-18] MEDS: ENOXAPARIN SODIUM 40 MG/0.4 ML DISP.SYRIN SQ SCH (08:33)
[2023-06-18] MEDS: DOXYCYCLINE HYCLATE 100 MG TABLET PO SCH ×2 (08:58→20:32)
[2023-06-18] MEDS: BACITRACIN ZINC OINT 15 GM TUBE TOP SCH (09:11)
[2023-06-18] MEDS: REMEDY ESSENTIAL ZINC PASTE 113 GM TP PRN (09:11)
[2023-06-18] MEDS: CLOTRIMAZOLE 1% CREAM 30 GM TUBE TOP SCH ×2 (10:02→17:34)
[2023-06-18] MEDS ORDERED: methylPREDNISolone 1 PACK TAB.DS.PK [4MG TAB] PO ONE (10:30)
[2023-06-18] MEDS ORDERED: methylPREDNISolone 4 MG TABLET (DAY#1) PO ONE (10:45)
[2023-06-18 11:42] VITALS: BP 159/77; TEMP 98.7; O2SAT 95
[2023-06-18] MEDS: IBUPROFEN 600 MG TABLET PO PRN (11:45)
[2023-06-18] MEDS: INSULIN REGULAR, HUMAN 300 UNIT/3 ML VIAL SQ PRN ×3 (12:21→20:38)
[2023-06-18] MEDS ORDERED: methylPREDNISolone 4 MG TABLET (DAY#1 PC LUNCH) PO ONE (12:30)
[2023-06-18 14:20] VITALS: O2SAT 97
[2023-06-18 16:18] VITALS: BP 161/75; TEMP 97.8; O2SAT 93
[2023-06-18] MEDS ORDERED: methylPREDNISolone 4 MG TABLET (DAY#1, PC DINNER) PO ONE (17:30)
[2023-06-18] MEDS: hydrALAZINE HCL 20 MG/1 ML VIAL IV PRN (17:39)
[2023-06-18] MEDS: DOCUSATE SODIUM 250 MG CAPSULE PO SCH (20:32)
[2023-06-18] MEDS: SENNOSIDES 1 TABLET PO SCH (20:32)
[2023-06-18] MEDS: AMLODIPINE 5 MG TABLET PO SCH (20:33)
[2023-06-18] MEDS ORDERED: methylPREDNISolone 4 MG TABLET (DAY#1, HS) PO ONE (21:00)
[2023-06-18 21:49] VITALS: BP 146/80; TEMP 97.5; O2SAT 95
[2023-06-19] MEDS: HYDROMORPHONE 2 MG/1 ML DISP.SYRIN IV PRN ×2 (03:38→10:45)
[2023-06-19 05:34] VITALS: BP 168/75; TEMP 97.7; O2SAT 96
[2023-06-19] MEDS: MORPHINE SULFATE SR 30 MG TABLET.SA PO SCH ×2 (06:16→13:08)
[2023-06-19] MEDS: PIPERACILLIN SODIUM/TAZOBACTAM 3.375 G in IV DEXTROSE 5% 100 ML IV SCH (06:16)
[2023-06-19] MEDS: ACETAMINOPHEN ES 500 MG TABLET PO SCH ×2 (06:17→13:08)
[2023-06-19] MEDS: BLOOD SUGAR DIAGNOSTIC 1 EACH STRIP VI SCH ×2 (06:43→11:55)
[2023-06-19] MEDS ORDERED: methylPREDNISolone 4 MG TABLET (DAY#2, ACB) PO ONE (07:30)
[2023-06-19] MEDS: INSULIN REGULAR, HUMAN 300 UNIT/3 ML VIAL SQ PRN (07:49)
[2023-06-19] MEDS: CARVEDILOL 25 MG TABLET PO SCH (07:56)
[2023-06-19 08:00] VITALS: BP 158/81; TEMP 98.1; O2SAT 97
[2023-06-19] MEDS: BACLOFEN 10 MG TABLET PO SCH ×2 (08:55→13:07)
[2023-06-19] MEDS: DILTIAZEM HCL CD 240 MG CAP.SR.24H PO SCH (08:56)
[2023-06-19] MEDS: PREGABALIN 25 MG CAPSULE PO SCH (08:56)
[2023-06-19] MEDS: DOXYCYCLINE HYCLATE 100 MG TABLET PO SCH (08:56)
[2023-06-19] MEDS: MULTIVITAMINS,THERAPEUTIC TABLET PO SCH (08:56)
[2023-06-19] MEDS: ASPIRIN 81 MG TAB.CHEW PO SCH (08:56)
[2023-06-19] MEDS: VALSARTAN 160 MG TABLET PO SCH (08:57)
[2023-06-19] MEDS: GABAPENTIN 300 MG CAPSULE PO SCH ×2 (08:57→13:08)
[2023-06-19] MEDS: CLOPIDOGREL 75 MG TABLET PO SCH (08:57)
[2023-06-19] MEDS: MIRALAX 17 GM POWD.PACK PO SCH (08:58)
[2023-06-19] MEDS: ENOXAPARIN SODIUM 40 MG/0.4 ML DISP.SYRIN SQ SCH (08:58)
[2023-06-19] MEDS: BACITRACIN ZINC OINT 15 GM TUBE TOP SCH (09:01)
[2023-06-19] MEDS: CLOTRIMAZOLE 1% CREAM 30 GM TUBE TOP SCH (09:02)
[2023-06-19] MEDS: METOPROLOL TARTRATE 5 MG/5 ML VIAL IVP PRN (11:15)
[2023-06-19 11:17] VITALS: BP 162/73; TEMP 98.7; O2SAT 96
[2023-06-19] MEDS ORDERED: methylPREDNISolone 4 MG TABLET (DAY#2, PC LUNCH) PO ONE (12:30)
[2023-06-19] MEDS ORDERED: HYDROMORPHONE HCL 2 MG TABLET PO PRN (13:00)
[2023-06-19] MEDS ORDERED: SENN-18 PO (13:34)
[2023-06-19] MEDS ORDERED: METH4TAB3 PO (13:34)
[2023-06-19] MEDS ORDERED: POLY17PO4 PO (13:34)
[2023-06-19] MEDS ORDERED: DOXY-326 PO (13:34)
[2023-06-19] MEDS ORDERED: CARV25TA PO (13:34)
[2023-06-19] MEDS ORDERED: VALS320T2 PO (13:34)
[2023-06-19] MEDS ORDERED: BACL10TA PO (13:34)
[2023-06-19] MEDS ORDERED: DOCU250C14 PO (13:34)
[2023-06-19] MEDS ORDERED: MULT-594 PO (13:34)
[2023-06-19] MEDS ORDERED: DILT240C99 PO (13:34)
[2023-06-19] MEDS ORDERED: HYDR8TAB2 PO (13:42)
[2023-06-19] MEDS ORDERED: MORP60TA34 PO (13:42)
[2023-06-19] MEDS ORDERED: CEFE1PIG3 IV ×2 (13:50→13:52)
[2023-06-19 14:52] VITALS: BP 182/87
[2023-06-19] MEDS: hydrALAZINE HCL 20 MG/1 ML VIAL IV PRN (14:52)
[2023-06-19] MEDS ORDERED: methylPREDNISolone 4 MG TABLET (DAY#2, PC DINNER) PO ONE (17:30)
[2023-06-19] MEDS ORDERED: methylPREDNISolone 4 MG TABLET (DAY#2, HS) PO ONE (21:00)
[2023-06-20] MEDS ORDERED: methylPREDNISolone 4 MG TABLET (DAY#3, ACB) PO ONE (07:30)
[2023-06-20] MEDS ORDERED: methylPREDNISolone 4 MG TABLET (DAY#3, PC LUNCH) PO ONE (12:30)
[2023-06-20] MEDS ORDERED: methylPREDNISolone 4 MG TABLET (DAY#3, PC DINNER) PO ONE (17:30)
[2023-06-20] MEDS ORDERED: methylPREDNISolone 4 MG TABLET (DAY#3, HS) PO ONE (21:00)
[2023-06-21] MEDS ORDERED: methylPREDNISolone 4 MG TABLET (DAY#4, ACB) PO ONE (07:30)
[2023-06-21] MEDS ORDERED: methylPREDNISolone 4 MG TABLET (DAY#4, PC LUNCH) PO ONE (12:30)
[2023-06-21] MEDS ORDERED: methylPREDNISolone 4 MG TABLET (DAY#4, HS) PO ONE (21:00)
[2023-06-22] MEDS ORDERED: methylPREDNISolone 4 MG TABLET (DAY#5, ACB) PO ONE (07:30)
[2023-06-22] MEDS ORDERED: methylPREDNISolone 4 MG TABLET (DAY#5, HS) PO ONE (21:00)
[2023-06-23] MEDS ORDERED: methylPREDNISolone 4 MG TABLET (DAY#6, ACB) PO ONE (07:30)
== END 2023-06-19 14:45 | DRG 347 ==
LOC: ER 18:58 → TELE3 23:00 → MEDSURG3 06-12 15:05 → TRANSITION 06-14 19:10 → TELE-TD3 06-15 07:37 → TELE3 06-16 13:30 → MEDSURG3 06-18 10:15
PROVIDERS: ADMIT Internal Medicine; ATTEND Nurse Practitioner Acute Care
PROC: 05HF33Z Insertion of Infusion Device into Left Cephalic Vein, Percutaneous Approach (ICD-10-PCS; principal; 2023-06-12)
DX: S32.029A Unspecified fracture of second lumbar vertebra, initial encounter for closed fracture (principal); J96.01 Acute respiratory failure with hypoxia; A40.8 Other streptococcal sepsis; R65.20 Severe sepsis without septic shock; J15.9 Unspecified bacterial pneumonia; D68.59 Other primary thrombophilia; L03.115 Cellulitis of right lower limb; I47.1 Supraventricular tachycardia; E11.40 Type 2 diabetes mellitus with diabetic neuropathy, unspecified; I11.9 Hypertensive heart disease without heart failure; L03.116 Cellulitis of left lower limb; X50.0XXA Overexertion from strenuous movement or load, initial encounter; M51.36 Other intervertebral disc degeneration, lumbar region; B96.89 Other specified bacterial agents as the cause of diseases classified elsewhere; E66.01 Morbid (severe) obesity due to excess calories; Z68.39 Body mass index [BMI] 39.0-39.9, adult; E11.65 Type 2 diabetes mellitus with hyperglycemia; G89.29 Other chronic pain; M25.78 Osteophyte, vertebrae; Z86.73 Personal history of transient ischemic attack (TIA), and cerebral infarction without residual deficits; Z79.01 Long term (current) use of anticoagulants; Z79.84 Long term (current) use of oral hypoglycemic drugs; Z79.891 Long term (current) use of opiate analgesic; R60.0 Localized edema; I87.2 Venous insufficiency (chronic) (peripheral); M47.816 Spondylosis without myelopathy or radiculopathy, lumbar region; E86.0 Dehydration; Z79.899 Other long term (current) drug therapy; Z79.02 Long term (current) use of antithrombotics/antiplatelets; S81.801A Unspecified open wound, right lower leg, initial encounter; X58.XXXA Exposure to other specified factors, initial encounter; Y92.89 Other specified places as the place of occurrence of the external cause; Z74.09 Other reduced mobility
CPT/HCPCS: 36415; 36600; 71045; 72131; 82803; 83550; 83605; 83735; 84100; 84484; 85025; 85730; 87040; 93005; 93307; A4663; A9150; G0378; J0153; J0360; J0696; J1170; J1650; J1815; J1940; J2405; J2543; J3370; J3490; J7040; J7060; J7509